=== PATIENT | male | born 1995 | race Hispanic/Latino ===

== ENCOUNTER 2021-08-05 14:08 | Inpatient (IN) | payer OTHER ==
[2021-08-05 15:12] LABS: #Eosinphils 0.1 10x3/uL (0.0-0.5); #Monocytes 0.6 10x3/uL (0.0-1.1); #Neutrophils 7.8 10x3/uL (1.5-8.4); %Basophils 0.2 % (0.0-2.0); %Eosinophils 0.8 % (0.0-6.0); %Lymphocytes 15.1 % (18.0-47.0); %Monocytes 5.9 % (0.0-10.0); %Neutrophils 77.6 % (40.0-75.0); Hemoglobin 12.4 g/dL (13.5-17.5); Mean Corpuscular HGB CONC 31.2 g/dL (32.0-36.0); Mean Corpuscular Hemoglobin 25.4 pg (27.0-33.0); Mean Corpuscular Volume 81.6 fl (81.2-95.1); Platelet Count 358 10x3/uL (150-450); RBC Distribution Width 14.9 % (11.5-14.5); Red Blood Cell (RBC) Count 4.88 10x6/uL (4.32-5.72); White Blood Cell (WBC) Count 10.1 10x3/uL (3.5-10.5)
[2021-08-05 15:18] LABS: ALT (SGPT) 20 U/L (8-55); AST (SGOT) 18 U/L (5-34); Albumin 3.7 g/dL (3.5-5.0); Alkaline Phosphatase 103 U/L (40-110); Anion Gap 17 mmol/L (10-20); BUN (Urea Nitrogen) 15 mg/dL (8.9-20.6); Bilirubin, Total 1.6 mg/dL (0.2-1.2); Calc. Creatinine Clearance 0 mL/min (70-130); Carbon Dioxide 22 mmol/L (22-29); Chloride 105 mmol/L (98-107); Globulin 3.5 g/dL (2.4-3.5); Glucose 122 mg/dL (70-105); Potassium 3.9 mmol/L (3.5-5.1); Protein, Total 7.2 g/dL (6.0-8.3); Sodium 140 mmol/L (136-145)
[2021-08-05] MEDS ORDERED: Iopamidol 370 76% 100 ML VIAL ONE (15:27)
[2021-08-05] MEDS ORDERED: Aspirin Chewable 81 MG TAB ONE (16:00)
[2021-08-05] MEDS ORDERED: Furosemide 40 MG/4 ML VIAL ONE (16:00)
[2021-08-05] MEDS ORDERED: Nitroglycerin 2% Ointment 1 INCH/1 GM Packet ONE (16:01)
[2021-08-05] MEDS ORDERED: cefTRIAXone\\ROCEPHIN 1 GM VIAL ONE (18:14)
[2021-08-05] MEDS ORDERED: Azithromycin 500 MG VIAL ONE (18:29)
[2021-08-05 19:28] LABS: SARS-CoV-2 NAA Rapid Test Not Detected (NotDetected)
[2021-08-05 20:29] LABS: Troponin I 0.047 ng/mL (< 0.028)
[2021-08-05 21:57] LABS: Troponin I 0.112 ng/mL (< 0.028)
[2021-08-05] MEDS ORDERED: Senokot S 8.6-50 MG TAB PO PRN (22:05)
[2021-08-05] MEDS ORDERED: Guaifenesin DM 100-10/5 ML UDCUP PO PRN (22:05)
[2021-08-05] MEDS ORDERED: Zolpidem Tartrate 5 MG TAB PO PRN (22:05)
[2021-08-05] MEDS ORDERED: Acetaminophen 325 MG TAB PO PRN (22:05)
[2021-08-05] MEDS ORDERED: Ondansetron PF 4 MG/2 ML Vial IVP PRN (22:05)
[2021-08-05] MEDS ORDERED: Calcium Carbonate 500 MG ChewTAB PO PRN (22:05)
[2021-08-05] MEDS ORDERED: HYDROcodone/Acetaminophen 5/325 mg Tablet PO PRN (22:05)
[2021-08-05] MEDS ORDERED: Labetalol HCl 100 MG/20 ML VIAL SLOW IVP PRN (22:09)
[2021-08-05] MEDS ORDERED: Nitroglycerin 0.4 MG TAB (25 Tab Bottle) SL PRN (22:09)
[2021-08-05] MEDS ORDERED: Labetalol HCl 100 MG/20 ML VIAL ONE (22:20)
[2021-08-06 00:45] VITALS: BMI 52.7
[2021-08-06] MEDS ORDERED: cloNIDine 0.1 MG TAB PO SCH (01:15)
[2021-08-06 05:25] LABS: #Eosinphils 0.2 10x3/uL (0.0-0.5); #Neutrophils 8.2 10x3/uL (1.5-8.4); %Basophils 0.4 % (0.0-2.0); %Eosinophils 1.3 % (0.0-6.0); %Lymphocytes 16.3 % (18.0-47.0); %Neutrophils 72.5 % (40.0-75.0); Hemoglobin 11.4 g/dL (13.5-17.5); Mean Corpuscular HGB CONC 32.1 g/dL (32.0-36.0); Mean Corpuscular Hemoglobin 25.7 pg (27.0-33.0); Mean Platelet Volume 10.2 fl (7.4-10.4); Platelet Count 314 10x3/uL (150-450); RBC Distribution Width 15.2 % (11.5-14.5); Red Blood Cell (RBC) Count 4.44 10x6/uL (4.32-5.72); White Blood Cell (WBC) Count 11.3 10x3/uL (3.5-10.5)
[2021-08-06 05:38] LABS: Anion Gap 16 mmol/L (10-20); BUN (Urea Nitrogen) 12 mg/dL (8.9-20.6); CK (CPK) 59 U/L (30-200); Calc. Creatinine Clearance 271 mL/min (70-130); Calcium 8.5 mg/dL (7.8-10.44); Carbon Dioxide 22 mmol/L (22-29); Cardiac Risk 5.5 (Less than 4.5); Chloride 105 mmol/L (98-107); Cholesterol 137 mg/dl (< 200 Desired); Glucose 96 mg/dL (70-105); HDL Cholesterol 25 mg/dL (>60 Neg Risk); LDL Cholesterol, Calculated 99 mg/dL; Potassium 3.9 mmol/L (3.5-5.1); Sodium 139 mmol/L (136-145); Triglycerides 67 mg/dL (Less than 150)
[2021-08-06 05:58] LABS: CKMB 1.2 ng/mL (0-6.6)
[2021-08-06] MEDS ORDERED: Furosemide 20 MG/2 ML VIAL SLOW IVP SCH (06:00)
[2021-08-06 07:32] LABS: Legionella Urinary Ag Negative (Negative)
[2021-08-06 07:33] LABS: Strep pneumo Urine Ag NEGATIVE (NEGATIVE)
[2021-08-06 07:53] LABS: Free T4 (Free Thyroxine) 1.07 ng/dL (0.70-1.48); Thyroid Stimulating Hormone 1.7922 uIU/mL (0.35-4.94)
[2021-08-06] MEDS ORDERED: Lisinopril/Hydrochlorothiazide 20 mg/12.5 mg Tablet PO SCH (09:00)
[2021-08-06] MEDS ORDERED: Lisinopril 20 MG TAB PO SCH (09:00)
[2021-08-06] MEDS ORDERED: Enoxaparin Sodium 40 MG/0.4 ML SYRINGE ONE (09:08)
[2021-08-06] MEDS: Enoxaparin Sodium 40 MG/0.4 ML SYRINGE SC SCH (09:17)
[2021-08-06] MEDS: Aspirin 81 mg Enteric Coated Tablet PO SCH (09:18)
[2021-08-06] MEDS: Carvedilol 12.5 MG TAB PO SCH ×2 (09:18→17:41)
[2021-08-06] MEDS ORDERED: Empagliflozin 10 MG TAB PO SCH (11:00)
[2021-08-06 13:29] LABS: Hemoglobin A1c 5.4 % (4.0-6.0)
[2021-08-07 05:17] LABS: Hemoglobin 11.9 g/dL (13.5-17.5); Mean Corpuscular HGB CONC 31.8 g/dL (32.0-36.0); Mean Corpuscular Hemoglobin 25.4 pg (27.0-33.0); Mean Corpuscular Volume 79.9 fl (81.2-95.1); Mean Platelet Volume 10.3 fl (7.4-10.4); Platelet Count 380 10x3/uL (150-450); RBC Distribution Width 15.5 % (11.5-14.5); Red Blood Cell (RBC) Count 4.68 10x6/uL (4.32-5.72); White Blood Cell (WBC) Count 10.2 10x3/uL (3.5-10.5)
[2021-08-07 05:28] LABS: Anion Gap 16 mmol/L (10-20); BUN (Urea Nitrogen) 17 mg/dL (8.9-20.6); Calc. Creatinine Clearance 221 mL/min (70-130); Calcium 8.8 mg/dL (7.8-10.44); Carbon Dioxide 23 mmol/L (22-29); Chloride 104 mmol/L (98-107); Glucose 83 mg/dL (70-105); Potassium 3.6 mmol/L (3.5-5.1); Sodium 139 mmol/L (136-145)
[2021-08-07 05:35] LABS: MDiff Complete? YES
[2021-08-07 05:38] LABS: Band 5 % (5-11); Eosinophils 3 % (0-10); Lymphocytes 24 % (21-51); Monocytes 8 % (0-10); Neutrophil 60 % (42-75)
[2021-08-07 05:40] LABS: Platelet Morphology Comment Appears Adequate; RBC Morphology Normal
[2021-08-07] MEDS: Enoxaparin Sodium 40 MG/0.4 ML SYRINGE SC SCH (08:59)
[2021-08-07] MEDS: Furosemide 20 MG TAB PO SCH (09:00)
[2021-08-07] MEDS: Carvedilol 25 MG TAB PO SCH ×2 (09:00→17:35)
[2021-08-07] MEDS: Aspirin 81 mg Enteric Coated Tablet PO SCH (09:00)
[2021-08-07] MEDS: Empagliflozin 10 MG TAB PO SCH (09:01)
[2021-08-08] MEDS: Furosemide 20 MG TAB PO SCH (08:25)
[2021-08-08] MEDS: Empagliflozin 10 MG TAB PO SCH (08:25)
[2021-08-08] MEDS: Aspirin 81 mg Enteric Coated Tablet PO SCH (08:25)
[2021-08-08] MEDS: Enoxaparin Sodium 40 MG/0.4 ML SYRINGE SC SCH (08:25)
[2021-08-08] MEDS: Carvedilol 25 MG TAB PO SCH (08:25)
[2021-08-08 12:42] VITALS: BP 123/74; TEMP 97.4
== END 2021-08-08 14:25 | disposition home or self-care (01) | DRG 280 ==
LOC: CSHERS 14:08 → CSHTELE 19:30 → UNDOADMIN 08-06 00:31 → CSHTELE 08-06 00:31
PROVIDERS: ADMIT Student in an Organized Health Care Education/Training Program; ATTEND Internal Medicine
DX: I11.0 Hypertensive heart disease with heart failure (principal); J18.9 Pneumonia, unspecified organism; I21.A1 Myocardial infarction type 2; I50.21 Acute systolic (congestive) heart failure; Z68.43 Body mass index [BMI] 50.0-59.9, adult; I42.8 Other cardiomyopathies; Z20.822 Contact with and (suspected) exposure to COVID-19; E66.01 Morbid (severe) obesity due to excess calories; D64.9 Anemia, unspecified; R73.9 Hyperglycemia, unspecified; G47.33 Obstructive sleep apnea (adult) (pediatric); Z82.49 Family history of ischemic heart disease and other diseases of the circulatory system; Z83.3 Family history of diabetes mellitus
CPT/HCPCS: 36415; 71045; 71275; 80048; 80053; 80061; 82550; 82553; 83036; 83605; 83880; 84145; 84439; 84443; 84484; 85025; 85379; 86140; 87040; 87449; 87899; 93005; 93306; 96374; 96375; J0456; J0696; J1650; J1940; J1956; Q9967; U0002